=== PATIENT | female | born 1970 | race Caucasian/White ===

== ENCOUNTER 2022-11-02 08:32 | Outpatient (CLI) | payer OTHER, SELFPAY ==
[2022-11-02 09:28] LABS: Hematocrit 48.6 % (37.0-47.0); Hemoglobin 16.1 g/dL (12.0-15.0)
== END 2022-11-02 08:33 | disposition home or self-care (01) ==
LOC: ANHSURGERY 08:36
PROVIDERS: Anesthesiology; PCP Registered Nurse; Visit Provider Obstetrics & Gynecology
DX: D21.9 Benign neoplasm of connective and other soft tissue, unspecified (principal); Z01.818 Encounter for other preprocedural examination
CPT/HCPCS: 36415; 85014; 85018; 86850; 86900; 86901

== ENCOUNTER 2022-11-06 00:33 | Day surgery (SDC) | payer OTHER, SELFPAY ==
[2022-10-28 14:14] VITALS: BMI 30.7
--- NOTE | 2022-10-28 14:22 | PC.NURSE ---
Report to the Outpatient Waiting Room, entrance under the green pavilion located off [facility], at time 7:00 on date 11/06/22. Planned Procedure Time: 9:00. Time changes happen often and if your time is changed the preop area will call you the afternoon before. - You and your visitor will be asked to self-screen and do not enter if you have any COVID symptoms. - Only one visitor is requested with a max of two and NO children visitors are allowed at this time. - The patient visitor may be requested to leave or wait in car when not with patient due to distancing restrictions. - A mask is optional within the hospital at this time. Patients may have clear liquids (water, carbonated beverages, clear teas, apple juice) until 3 hours prior to surgery (6:00) with a maximum of 20 ounces. - No food from midnight until time of surgery Take the following medications with a SIP of water the morning of surgery: NONE DO NOT STOP ANY OF YOUR OTHER PRESCRIPTION MEDICATIONS PRIOR TO SURGERY EXCEPT THE FOLLOWING Medications to discontinue per physician: VITAMINS/SUPPLEMENTS Date to take last dose: 11/02/22 Please no make-up, nail mongolian, hairspray, perfume, deodorant, or body powder the day of surgery. No jewelry (including any body piercings) or valuables the day of surgery, leave them at home. Please take a shower or bath the night before, or the morning of, surgery with an antibacterial soap. Wear comfortable, loose fitting clothing. - Jewelry must be removed prior to entering the operating room. Rings and piercings that are not removed may be cut off. - The hospital will not accept responsibility for valuables. - Please leave all valuables, including medications, at home the day of surgery. If you are going home after surgery, a licensed auto crane driver must drive you home. - NO public transportation without another adult if you receive anesthesia. - We recommend that an adult stay with you for 24 hours following discharge. - We also recommend that you do not drive, make important decision, drink alcoholic beverages, or take any drugs that were not prescribed by your health care provider for at least 24 hours after your discharge time. Follow any additional instructions given to you from your surgeon. If you or anyone in your household have experienced Covid symptoms in the past week, please notify your surgeon or the nurse liaison at the phone number below for possible testing. Telephone instructions given to GRANT HUYNH and asked if any additional questions and then verbalized understanding. Patient advised to call surgeon office or pre surgery nurse liaison [phone] if any additional questions.
[2022-11-06] VITALS (9 sets, daily range): BP systolic 111–130; BP diastolic 55–85; PULSE 65–85; RESP 13–18; TEMP 36.6–37; O2SAT 92–100
[2022-11-06] MEDS: ACETAMINOPHEN 500 MG TABLET 1000 MG PO (07:37)
[2022-11-06] MEDS: KETOROLAC 15 MG/ML VIAL (*BKC) IV PUSH (07:54)
--- NOTE | 2022-11-06 07:59 | PM.IMHP ---
H&P: HPI History of Present Illness Date/Time: 11/06/22 07:59 Chief Complaint: hysterectomy Narrative: Jelly is a 51yyo with a large fibroid uterus who presents for NELIA/BSo. Menopausal, but has mass sx from 24w size uterus. No prior abdominal surgery. Review of Systems Review of Systems: All systems reviewed & are unremarkable except as noted in HPI and below PMFSH Family History Family History (Updated 04/04/18 @ 11:17 by DOCTOR UNKNOWN) Father Hypertension Cerebrovascular accident Family history of coronary artery disease Family history of cardiovascular disease Mother Hypertension Grandparent Family history of malignant neoplasm of bone Family history of malignant neoplasm of ovary Family history of pancreatic cancer Family history of lung cancer Social History Social History Smoking status: Never smoker Alcohol intake: never Substance use: never Substance use type: does not use Living arrangements: with family Spiritual care concerns: No Meds Home Medications and Allergies Home Medications Medication Instructions Recorded Confirmed Type cholecalciferol (vitamin D3) 125 125 mcg PO DAILY 10/28/22 11/06/22 History mcg (5,000 unit) tablet (Vitamin D3) lisinopril 10 mg tablet 10 mg PO DAILY 10/28/22 11/06/22 History multivitamin 1 tablet PO DAILY 10/28/22 11/06/22 History venlafaxine 37.5 mg 37.5 mg PO HS 10/28/22 11/06/22 History tablet,extended release 24 hr Allergies Allergy/AdvReac Type Severity Reaction Status Date / Time bacitracin Allergy Mild Itching Verified 11/06/22 07:15 [From Triple Antibiotic] neomycin Allergy Mild Itching Verified 11/06/22 07:15 [From Triple Antibiotic] polymyxin B Allergy Mild Itching Verified 11/06/22 07:15 [From Triple Antibiotic] Exam Const: General: no acute distress Resp: Effort & Inspection: normal respiratory effort Auscultation: clear to auscultation bilaterally Cardio: Rate: regular rate Rhythm: regular rhythm GI: GI Palp: Yes Soft to palpation Extrem: General: normal to inspection Assessment and Plan Assessment and plan (1) 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 Possible vertical incision. Discussed RBA, pt consented. Would like BSO also since menopausal. Questions answered.
--- NOTE | 2022-11-06 08:48 | P.PNAN_ITS ---
Anes - Initial Pre Proc Eval Procedure: Operation Date: 11/06/22 09:00 Proposed Procedures p Total Abdominal Hysterectomy, Bilateral Salpingo Oophorectomy - Rena Crocker MD Date/Time: 11/06/22 08:48 Surgeon: Rena Crocker MD Pre Op Diagnosis: fibroids Patient Data Age: 51 Gender: F Height: 1.57 m Weight: 75.4 kg Last Vital Signs Temp 36.6 C 11/06/22 08:00 Pulse 74 11/06/22 08:00 Resp 16 11/06/22 08:00 BP 125/85 11/06/22 08:00 Pulse Ox 97 11/06/22 08:00 O2 Del Method Room Air 11/06/22 08:00 Allergies Allergy/AdvReac Type Severity Reaction Status Date / Time bacitracin Allergy Mild Itching Verified 11/06/22 07:15 [From Triple Antibiotic] neomycin Allergy Mild Itching Verified 11/06/22 07:15 [From Triple Antibiotic] polymyxin B Allergy Mild Itching Verified 11/06/22 07:15 [From Triple Antibiotic] Home Medications Medication Instructions Recorded Confirmed Type cholecalciferol (vitamin D3) 125 125 mcg PO DAILY 10/28/22 11/06/22 History mcg (5,000 unit) tablet (Vitamin D3) lisinopril 10 mg tablet 10 mg PO DAILY 10/28/22 11/06/22 History multivitamin 1 tablet PO DAILY 10/28/22 11/06/22 History venlafaxine 37.5 mg 37.5 mg PO HS 10/28/22 11/06/22 History tablet,extended release 24 hr Patient hx anesthesia problems: post op nausea/vomiting Family hx anesthesia problems: none Results Review: All pre-operative results and documents have been reviewed as part of the pre- operative evaluation. [facility] Family History Family History Father Hypertension Cerebrovascular accident Family history of coronary artery disease Family history of cardiovascular disease Mother Hypertension Grandparent Family history of malignant neoplasm of bone Family history of malignant neoplasm of ovary Family history of pancreatic cancer Family history of lung cancer Social History Social History Smoking status: Never smoker Alcohol intake: never Substance use: never Substance use type: does not use Living arrangements: with family Spiritual care concerns: No Anes - Eval Final PreProcedure Day of Procedure 11/06/22 08:48 Patient weight: obese Heart: regular rate and rhythm Lungs: clear to auscultation Airway: Mallampati scale class II Neurological: alert and oriented Last oral intake: >/= 8 hours ASA classification: III Emergent: no Anesthetic plan: proceed Anesthesia type and monitoring: general ETT and standard monitoring Results Review: All pre-operative results and documents have been reviewed as part of the pre- operative evaluation. Informed Consent: The patient's anesthetic plan and its attendant risks and benefits were discussed with the patient/family/POA. Questions were solicited and answers provided to the satisfaction of the patient/family/POA.
--- NOTE | 2022-11-06 08:55 | WPDHPUPDATE1 ---
History and Physical Update Update Date/Time: 11/06/22 08:55 History and Physical has been reviewed, including an updated exam of the patient. There are NO changes in the patient's condition. Risks, benefits, and alternatives have been discussed and questions answered. Patient agrees to proceed with procedure.
[2022-11-06] MEDS: SCOPOLAMINE 1.5 MG PATCH TRANSDERM (09:03)
[2022-11-06] MEDS: LACTATED RINGERS 1,000 ML 30 ML IV CONT ×2 (09:03→11:39)
[2022-11-06] MEDS: ceFAZolin 2 GM/D5W 50 ML 2 GM/50 ML BAG IVPB (09:06)
--- NOTE | 2022-11-06 11:42 | P.OP_ITS ---
Procedure Note - Detailed Date of Procedure 11/06/22 Pre-op Diagnosis fibroids Post-op Diagnosis Same Procedure Performed NELIA and BSO Surgeon Rena Crocker MD Anesthesia General Indications 26w size fibroid uterus Findings above Description of Procedure After consent was obtained, the patient was taken to the OR and placed in supine position. GETA was administered. She received antibiotics and SCDs were place d. A boyd was inserted and she was prepped and draped in sterile fashion. A vertical skin incision was make from the pubic symphysis to just below the umbilicus. It was extended through the fascia. The muscles were in the midline and the peritoneum was entered bluntly. The incision was extended superiorly and inferiorly both bluntly and sharply taking care to avoid the bladder. The large uterus was able to be delivered through the incision, exposing the anatomy nicely. The left round ligament was identified and grasped with two Lang clamps, cut between with the Bovie, and suture ligated. The anterior leaf of the broad ligament was opened both anteriorly and posteriorly. The infundibulopelvic ligament was identified and doubly clamped, cut, and suture ligated. The bladder was freed from the anterior cervix by sharp and blunt dissection. Similarly on the right, the round ligament was identified, clamped, cut, suture ligated, the broad ligament was opened, the IP ligament was clamped, cut and suture ligated. THe uterine vessels were skeletonized bilaterally and then doubly clamped at the level of the internal os, cut and ligated. ONce it was assured the bladder was below the cervix, the cardinal and uteruo scal ligaments were sequentially clamped cut and ligated until the lateral fornices of the vagina was reached. Curved Lang clamps were placed under the cervix and the uterus was amputated with Elizabeth scissors. The angles of the vaginal cuff where then suture legated with a modified Noe retention suture, incorporation suture, incorporating the uterosacral and cardinal ligaments to prevent vaginal prolapse. The remainder of the cuff the as suture ligated with a running suture of Vicryl. Hemostasis was noted at the cuff and all pedicles. The pelvis was copiously irrigated . The peritoneum was closed with a running suture of 3-0 vicryl and the fascia was closed with o loop PDS. THe subcutaneous space was irrigated, made hemostatic with Bovie cautery, and the skin was closed with absorbable stables. All counts were correct. Estimated Blood Loss 100 Drains No Packing No Pathology Yes Condition Stable Disposition Floor
[2022-11-06] MEDS: ONDANSETRON INJ 4 MG/2 ML VIAL IV PUSH (12:03)
[2022-11-06] MEDS: fentaNYL CITRATE INJ (*CRX) 100 MCG/2 ML VIAL 25 MCG IV PUSH ×5 (12:07→12:31)
--- NOTE | 2022-11-06 12:58 | PC.NURSE ---
Patient transferred to post room #289 via (stretcher ). Support person present. Oriented to unit, room, information board, rooming in, admission packet and security measures. Patient verbalizes understanding.
[2022-11-06] MEDS: MORPHINE SULFATE (*CRX) 2 MG/ML INJ IV PUSH (13:13)
[2022-11-06] MEDS: LACTATED RINGERS 1,000 ML 100 ML IV CONT (13:26)
[2022-11-06] MEDS: HYDROcodone/acetaminophen (*CRX) 10-325 MG TABLET 1 TAB PO (13:54)
[2022-11-06] MEDS: MORPHINE SULFATE (*CRX) 4 MG/ML INJ IV PUSH (15:16)
[2022-11-06] MEDS: IBUPROFEN 400 MG TABLET 800 MG PO (16:57)
[2022-11-06] MEDS: VENLAFAXINE HCL XR 37.5 MG CAP PO (21:13)
[2022-11-07 00:05] VITALS: BP 97/56; PULSE 64; RESP 16; TEMP 37.4; O2SAT 97
[2022-11-07] MEDS: LACTATED RINGERS 1,000 ML 30 ML IV CONT (00:12)
[2022-11-07 03:31] VITALS: BP 93/58; PULSE 64; RESP 16; TEMP 37.4; O2SAT 94
[2022-11-07 05:09] LABS: Hematocrit 43.6 % (37.0-47.0); Hemoglobin 14.1 g/dL (12.0-15.0); Mean Corpuscular HGB Conc 32.3 g/dl (32-36); Mean Corpuscular Hemoglobin 29.6 pg (26-34); Mean Corpuscular Volume 91.4 fl (80-100); Mean Platelet Volume 9.8 fl (7.4-10.4); Platelet Count Result 261 k/mm3 (150-375); Red Blood Count 4.77 M/mm3 (4.2-5.4); Red Cell Distribution Width 13.5 % (11.5-14.5); White Blood Count 11.6 K/mm3 (4.5-10.0)
[2022-11-07 06:15] VITALS: BP 88/50; PULSE 67; RESP 16; TEMP 36.9; O2SAT 96
--- NOTE | 2022-11-07 09:12 | PM.GYNPNOP ---
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 Will monitor.Overall doing great. Showed pictures of surgery, discussed.) Time Spent With Patient Time: Total time spent is greater than 50% in coordination of care (as documented) at patient's floor/unit and/or counseling patient: Time with patient: 15 - 25 minutes INSULATION BATTING MACHINE OPERATOR- PN:Subj Post-Op Subjective Date/time seen: 11/07/22 09:12 Interval history: Doing very well. N/V x1 at around 1800 last night, since then tolerating PO well. pain controlled. No concerns. No vaginal bleeding. Brooks out and has voided. No flatus yet. Exam Const: General: comfortable, alert and awake Resp: Effort & Inspection: normal respiratory effort Cardio: Rate: regular rate Rhythm: regular rhythm GI: GI Palp: Yes Soft to palpation Auscultation: normal bowel sounds Other: appriopriately tender incision bandaged with no strikethrough INSULATION BATTING MACHINE OPERATOR - PN: Obj Data Vital Signs Vital Signs: Vital Signs - 24 hr 11/06/22 11:39 11/06/22 11:50 11/06/22 12:05 Temperature 98.1 F Pulse Rate 71 65 76 Respiratory Rate 14 15 16 Blood Pressure 116/70 111/72 130/73 Pulse Oximetry 100 100 98 Oxygen Delivery Simple Face Mask Simple Face Mask Room Air Oxygen Flow Rate 6 6 11/06/22 12:20 11/06/22 12:35 11/06/22 13:30 Temperature 98.2 F Pulse Rate 74 73 67 Respiratory Rate 14 13 18 Blood Pressure 122/55 L 124/76 128/70 Pulse Oximetry 92 94 100 Oxygen Delivery Room Air Room Air Oxygen Flow Rate 11/06/22 13:30 11/06/22 17:15 11/06/22 17:15 Temperature 98.5 F Pulse Rate 85 Respiratory Rate 16 Blood Pressure 128/84 Pulse Oximetry 100 Oxygen Delivery Room Air Room Air Oxygen Flow Rate 11/06/22 20:11 11/06/22 20:11 11/07/22 00:05 Temperature 98.6 F 99.4 F Pulse Rate 76 64 Respiratory Rate 18 16 Blood Pressure 111/64 97/56 L Pulse Oximetry 93 97 Oxygen Delivery Room Air Oxygen Flow Rate 11/07/22 00:05 11/07/22 03:31 11/07/22 03:46 Temperature 99.4 F Pulse Rate 64 Respiratory Rate 16 Blood Pressure 93/58 L Pulse Oximetry 94 Oxygen Delivery Room Air Room Air Oxygen Flow Rate 11/07/22 06:15 11/07/22 06:15 Temperature 98.5 F Pulse Rate 67 67 Respiratory Rate 16 16 Blood Pressure 88/50 L Pulse Oximetry 96 96 Oxygen Delivery Room Air Oxygen Flow Rate Intake/Output Intake/Output: Intake & Output 11/04/22 11/05/22 11/06/22 11/07/22 23:59 23:59 23:59 23:59 Intake Total 1050 400 Output Total 305 1125 Balance 745 -725 Meds/Results Medications: Active Medications Generic Name Dose Route Start Last Admin Trade Name Freq PRN Reason Stop Dose Admin Acetaminophen 500 mg 11/06/22 12:05 Acetaminophen 500 Mg Tablet PO Q6H PRN Mild Pain (1-3) or Fever Hydrocodone Bitart/Acetaminophen 1 tab 11/06/22 12:05 11/06/22 13:54 Hydrocodone/Acetaminophen (*Crx) 10-325 Mg Tablet PO 1 tab Q6H PRN Administration Pain Rated 7-10 Diphenhydramine HCl 25 mg 11/06/22 12:05 Diphenhydramine Hcl Inj 50 Mg/Ml Vial IV PUSH Q6H PRN Itching Lactated Ringer's 1,000 mls @ 30 mls/hr 11/06/22 08:50 11/07/22 00:12 Lr - Lactated Ringers Iv IV CONT 30 mls/hr .Q24H CRISTY Administration Lactated Ringer's 1,000 mls @ 30 mls/hr 11/06/22 08:50 11/06/22 12:40 Lr - Lactated Ringers Iv IV CONT Infused .Q24H CRISTY Infusion Acetaminophen 1,000 mg in 100 mls @ 400 mls/hr 11/06/22 18:00 11/07/22 06:21 Ofirmev 1,000 Mg Ivpb IVPB 11/07/22 12:14 400 mls/hr Q6HR CRISTY Administration Ibuprofen 800 mg 11/06/22 12:05 11/06/22 16:57 Ibuprofen 400 Mg Tablet PO
--- NOTE | 2022-11-07 11:53 | WPDANESPN ---
Anes - Prog Note Post-Op Date/Time: 11/07/22 11:53 Cardiovascular status: normal Respiratory status: normal Airway patency: baseline Mental status: baseline Post-Op hydration status: normal Vital Signs: Last Vital Signs Temp 36.9 C 11/07/22 06:15 Pulse 67 11/07/22 06:15 Resp 16 11/07/22 06:15 BP 88/50 L 11/07/22 06:15 Pulse Ox 96 11/07/22 06:15 O2 Del Method Room Air 11/07/22 06:15 O2 Flow Rate 6 11/06/22 11:50 Pain Score (VAS): 10/09 I/O: Intake & Output 11/06/22 11/07/22 11/07/22 23:59 07:59 15:59 Intake Total 300 400 Output Total 275 1125 Balance 25 -725 Laboratory Tests 11/07/22 03:35 11/07/22 03:35 WBC 11.6 H RBC 4.77 Hgb 14.1 Hct 43.6 MCV 91.4 MCH 29.6 MCHC 32.3 RDW 13.5 Plt Count 261 MPV 9.8 Post-procedural complaints: none Patient Feedback: Patient satisfied with anesthetic care.
[2022-11-07 15:00] VITALS: BP 101/57; PULSE 67; RESP 16; TEMP 37; O2SAT 97
[2022-11-07 18:00] VITALS: BP 118/61; PULSE 77; RESP 18; TEMP 36.8; O2SAT 93
[2022-11-07] MEDS: IBUPROFEN 400 MG TABLET 800 MG PO (18:00)
[2022-11-08] MEDS: IBUPROFEN 400 MG TABLET 800 MG PO ×2 (04:44→11:54)
[2022-11-08] MEDS: lisinopriL 10 MG TABLET PO (07:59)
[2022-11-08 08:00] VITALS: BP 130/79; PULSE 73; RESP 18; TEMP 36.4; O2SAT 99
[2022-11-08] MEDS: MULTIVITAMINS THERAPEUTIC TAB (*BKC) 1 TABLET PO (08:00)
--- NOTE | 2022-11-08 10:20 | PM.GYNPNOP ---
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 E/V/A. passing flatus. Only taking motrin. Ready for DC home. Exam Narrative: NAD bandage removed inc CDI abdomen soft, appropriately tender ext NT, no edema CLUTCH SPECIALIST - PN: Obj Data Vital Signs Vital Signs: Vital Signs - 24 hr 11/07/22 15:00 11/07/22 18:00 11/07/22 18:00 Temperature 98.6 F 98.2 F Pulse Rate 67 77 Respiratory Rate 16 18 Blood Pressure 101/57 L 118/61 Pulse Oximetry 97 93 Oxygen Delivery Room Air 11/08/22 08:00 Temperature 97.6 F Pulse Rate 73 Respiratory Rate 18 Blood Pressure 130/79 Pulse Oximetry 99 Oxygen Delivery Intake/Output Intake/Output: Intake & Output 11/05/22 11/06/22 11/07/22 11/09/22 23:59 23:59 23:59 00:59 Intake Total 1050 500 Output Total 305 1125 Balance 745 -625 Meds/Results Medications: Active Medications Generic Name Dose Route Start Last Admin Trade Name Freq PRN Reason Stop Dose Admin Acetaminophen 500 mg 11/06/22 12:05 Acetaminophen 500 Mg Tablet PO Q6H PRN Mild Pain (1-3) or Fever Hydrocodone Bitart/Acetaminophen 1 tab 11/07/22 09:20 Hydrocodone/Acetaminophen (*Crx) 10-325 Mg Tablet PO Q4H PRN Pain Rated 5-10 Diphenhydramine HCl 25 mg 11/06/22 12:05 Diphenhydramine Hcl Inj 50 Mg/Ml Vial IV PUSH Q6H PRN Itching Lactated Ringer's 1,000 mls @ 30 mls/hr 11/06/22 08:50 11/07/22 00:12 Lr - Lactated Ringers Iv IV CONT 30 mls/hr .Q24H CRISTY Administration Lactated Ringer's 1,000 mls @ 30 mls/hr 11/06/22 08:50 11/06/22 12:40 Lr - Lactated Ringers Iv IV CONT Infused .Q24H CRISTY Infusion Ibuprofen 800 mg 11/06/22 12:05 11/08/22 04:44 Ibuprofen 400 Mg Tablet PO 800 mg Q6H PRN Administration CRAMPING Lisinopril 10 mg 11/07/22 09:00 11/08/22 07:59 Lisinopril 10 Mg Tablet PO 10 mg DAILY CRISTY Administration Multivitamins Therapeutic 1 tablet 11/07/22 09:00 11/08/22 08:00 Multivitamins Therapeutic Tab (*Bkc) PO 1 tablet DAILY CRISTY Administration Ondansetron HCl 4 mg 11/06/22 08:48 11/06/22 12:03 Ondansetron Inj 4 Mg/2 Ml Vial IV PUSH 4 mg ONCE PRN Administration Nausea Ondansetron HCl 4 mg 11/06/22 12:05 Ondansetron Inj 4 Mg/2 Ml Vial IV PUSH Q4H PRN Nausea And Vomiting Oxycodone HCl 5 mg 11/06/22 08:48 Oxycodone Hcl (*Crx) 5 Mg Tab Ir PO ONCE PRN Pain Senna/Docusate Sodium 2 tab 11/06/22 12:05 Senna/Docusate Sodium Tablet PO HS PRN Constipation Simethicone 80 mg 11/06/22 12:05 Simethicone 80 Mg Tab.Chew PO QID PRN Abdominal Cramping Venlafaxine HCl 37.5 mg 11/06/22 21:00 11/06/22 21:13 Venlafaxine Hcl Xr 37.5 Mg Cap PO 11/18/22 21:01 37.5 mg Q48H CRISTY Administration Labs 11/07/22 03:35
--- NOTE | 2022-11-08 10:23 | PM.DS ---
DS: Admitting Diagnosis Discharge Date 11/08/22 Admitting Diagnosis fibroid uterus DS: Discharge Diagnosis Discharge Diagnosis (1) S/P NELIA-BSO: Code(s): Z90.710 - Acquired absence of both cervix and uterus; Z90.722 - Acquired absence of ovaries, bilateral; Z90.79 - Acquired absence of other genital organ(s) Status: Acute DS: Summary Hospital Course Hospital Course: Jelly was admitted for NELIA/BSO for large fibroid uterus. Surgery was uncomplicated as was her postop course. By post op day 2, her pain was controlled with only ibuprofen, she was voiding, ambulating, and passing flatus, and was discharged home in stable condition. Status at Discharge Functional status at discharge: independent ambulation Time Spent with Patient Time attestation: Total time spent providing and/or coordinating discharge services: Time spent: Less than 30 minutes Exam Narrative: NAD abdomen soft, appropriately tender, incision CDI DS: Data Data Completed and Pending Pending studies at discharge: Pending at discharge 11/06/22 10:53 Surgical [PTH] Routine Discharge Plan Discharge Attending physician on discharge: Rena Crocker Discharging Clinician: Rena Crocker Anticipated Discharge Date/Time: 11/08/22 10:22 Patient Disposition: Home, Self-Care Activity: may shower, no straining and pelvic rest Diet: regular Wound Care Instructions: incision open to air Discharge Instructions: Remove the Scopolamine patch that was placed behind your ear in 72 hours or less. Wash your hands after touching. Stand Alone Forms: General Discharge Instructions Follow-up/Referrals: Rena Crocker MD [Physician] - 1 Week Discharge Medications: Continued multivitamin Tablet 1 tablet PO DAILY lisinopril 10 mg Tablet 10 mg PO DAILY venlafaxine 37.5 mg Tablet Extended Release 24hr 37.5 mg PO HS Rx Instructions: Taking every other day for next 2 weeks. cholecalciferol (vitamin D3) [Vitamin D3] 125 mcg (5,000 unit) Tablet 125 mcg PO DAILY Date of admission: 11/06/22 12:05 Primary Care Provider: Reg,Shahla Chavez Admitting Provider: Rena Crocker Attending physician on admission: Rena Crocker Condition: Stable
== END 2022-11-08 12:00 | disposition home or self-care (01) ==
LOC: ANHSURGERY 09:06 → ANHOB2 11-08 10:23 → ANHLDR 11-10 14:57
PROVIDERS: PCP Registered Nurse; Visit Provider Obstetrics & Gynecology
PROC: 0UT94ZZ Resection of Uterus, Percutaneous Endoscopic Approach (ICD-10-PCS; CPT 58150; principal; 2022-11-06 09:00)
DX: D25.1 Intramural leiomyoma of uterus (principal); D25.2 Subserosal leiomyoma of uterus; N83.201 Unspecified ovarian cyst, right side; E66.9 Obesity, unspecified; Z68.30 Body mass index [BMI] 30.0-30.9, adult
CPT/HCPCS: 58150; 36415; 85014; 85018; 85027; 86850; 86900; 86901; 88307; 99199; A9270; J0131; J0690; J1100; J1170; J1885; J2250; J2270; J2370; J2405; J2704; J2710; J3010; J7120

== ENCOUNTER 2024-04-26 12:50 | Outpatient (CLI) | payer OTHER, SELFPAY ==
--- NOTE | ~2024-04-26 | CT_ITS ---
CT of the Abdomen and Pelvis: Indication: Abdominal pain Technique: 2.5 mm axial scans were obtained through the abdomen and pelvis following intravenous adm inistration of 100 cc of Omnipaque 350. Dose reduction technique was used on this scan by utilizing a utomated exposure control and iterative reconstruction technique. The dose-length product (DLP) was 6 12.40 mGy-cm. Findings: Scans through the lung bases demonstrate calcified granulomas. The liver, spleen, pancreas, gallbladder, adrenals and kidneys are within normal limits. No evidence of aortic aneurysm. No lymphadenopathy. No bowel obstruction or bowel wall thickening. There is a small ventral fat-containing hernia just ab ove the pubic symphysis.. There is an additional ventral hernia just below the umbilicus, containing loops of small bowel. Images through the pelvis were performed. Urinary bladder unremarkable. No pelvic mass seen. No ascit es. Impression: Infraumbilical ventral hernia containing several small bowel loops. No bowel obstruction or bowel wal l thickening. Additional small fat-containing ventral hernia at the low anterior abdomen, just above the pubic symp hysis. Reviewed, dictated and finalized at location . Impression: Infraumbilical ventral hernia containing several small bowel loops. No bowel ob struction or bowel wall thickening. Additional small fat-containing ventral hernia at the low anterior abdomen, jus t above the pubic symphysis.
[2024-04-26 13:07] LABS: Estimated Glomerular Filt Rate > 60
== END 2024-04-26 12:51 ==
LOC: MICIMG 12:50
PROVIDERS: PCP Nurse Practitioner Family; Visit Provider Nurse Practitioner Family
DX: K43.9 Ventral hernia without obstruction or gangrene (principal)
CPT/HCPCS: 74177; Q9967